=== PATIENT | male | born 1975 | race African-American/Black ===

== ENCOUNTER 2023-01-29 11:36 | Outpatient (CLI) | payer OTHER | END 2023-01-29 11:46 | disposition home or self-care (01) | LOC: RAD 11:36 | PROVIDERS: ATTEND Specialist | DX: M86.9 Osteomyelitis, unspecified (principal) ==

== ENCOUNTER 2023-02-12 15:44 | Emergency (ER) | payer OTHER ==
[~2023-02-12] VITALS: Ht 190.5 cm; Wt 97.1 kg
== END 2023-02-12 19:35 | disposition home or self-care (01) ==
LOC: ER 15:44
DX: I10 Essential (primary) hypertension (principal)

== ENCOUNTER 2023-06-22 15:22 | Outpatient (CLI) | payer OTHER | END 2023-06-22 15:31 | disposition home or self-care (01) | LOC: RAD 15:22 | PROVIDERS: ATTEND Specialist | DX: J45.998 Other asthma (principal); E11.65 Type 2 diabetes mellitus with hyperglycemia; E11.21 Type 2 diabetes mellitus with diabetic nephropathy ==